=== PATIENT | male | born 1990 | race Caucasian/White ===

== ENCOUNTER 2017-03-01 14:38 | Emergency (ER) | payer BC, MEDICAID ==
[2017-03-01 14:53] VITALS: TEMP 97.8; O2SAT 100
[2017-03-01] MEDS ORDERED: Sodium Chloride 0.9% 1,000 ML IV STA (15:30)
--- NOTE | 2017-03-01 15:50 | ED PDOC ---
HPI: Abdomen <Kiah Barragan - Last Filed: 03/01/17 17:33> <Tulio Stevens III - Last Filed: 03/03/17 12:37> Time Seen by Provider: 03/01/17 15:30 Chief Complaint (Nursing): Abdominal Pain Additional Complaint(s): 26M p/w 2nd day of nausea, but able to tolerate water. He reports it started yesterday after eating rice/beans/chicken he became nauseous and NBNB vomit x1 for "little bit of water". This was associated with subjective fevers and diaphoresis. He has not eaten since this episode but has been able to tolerate water and continue taking his medications for ADD and anxiety and has overall improved. Otherwise, he denies SOB, chest pain, palpitations, sore throat, cough, ear pain, abdominal pain, reflux symptoms, diarrhea, dysuria. PMH: ADHD, Anxiety PSH: None Smoker: Denies Alcohol: Denies Drugs: Denies Meds: Gabapentin, Strattera Allergies: NKDA (Kiah Barragan) Supervising Attending Note - Attestation: I have personally seen and examined this patient.: Yes I have fully participated in the care of the patient.: Yes I have reviewed all pertinent clinical information: Yes <Tulio Stevens III - Last Filed: 03/03/17 12:37> Past Medical History - Medical History PMH: Anxiety, Depression - Family History Family History: States: Unknown Family Hx - Immunization History Hx Influenza Vaccination: Yes <Kiah Barragan - Last Filed: 03/01/17 17:33> <Tulio Stevens III - Last Filed: 03/03/17 12:37> Vital Signs: Last Vital Signs Temp 97.8 F 03/01/17 14:52 Pulse 78 03/01/17 18:22 Resp 16 03/01/17 18:22 BP 135/72 03/01/17 18:22 Pulse Ox 100 03/01/17 18:22 - Home Medications Home Medications: Ambulatory Orders Medication Instructions Recorded Gabapentin 300 mg PO BID 08/14/15 Wellbutrin 150 mg PO DAILY 08/14/15 traZODone 50 mg PO HS 08/14/15 Ondansetron [Zofran] 4 mg PO Q6H PRN #10 tab 03/01/17 - Allergies Allergies/Adverse Reactions: Allergies Allergy/AdvReac Type Severity Reaction Status Date / Time No Known Allergies Allergy Verified 08/14/15 12:31 Review of Systems ROS Statement: Except As Marked, All Systems Reviewed And Found Negative Constitutional: Positive for: Fever (not measured), Sweats Gastrointestinal: Positive for: Nausea (improved), Vomiting (yesterday x1). Negative for: Abdominal Pain, Diarrhea <Kiah Barragan - Last Filed: 03/01/17 17:33> Physical Exam - Reviewed Vital Signs Reviewed: Yes - Physical Exam Appears: Positive for: Well, Non-toxic, No Acute Distress Head Exam: Positive for: ATRAUMATIC, NORMAL INSPECTION Skin: Positive for: Normal Color, Warm, Dry Eye Exam: Positive for: Normal appearance, EOMI, PERRL ENT: Positive for: Pharynx Is (clear), TM Is/Are (clear) Neck: Positive for: Normal, Supple Cardiovascular/Chest: Positive for: Regular Rate, Rhythm Respiratory: Positive for: Normal Breath Sounds. Negative for: Wheezing Gastrointestinal/Abdominal: Positive for: Bowel Sounds, Soft. Negative for: Tenderness <Kiah Barragan - Last Filed: 03/01/17 17:33> - Laboratory Results Result Diagrams: 03/01/17 16:40 03/01/17 16:40 - ECG O2 Sat by Pulse Oximetry: 100 <Kiah Barragan - Last Filed: 03/01/17 17:33> - Laboratory Results Result Diagrams: 03/01/17 16:40 03/01/17 16:40 <Tulio Stevens III - Last Filed: 03/03/17 12:37> Medical Decision Making <Kiah Barragan - Last Filed: 03/01/17 17:33> <Tulio Stevens III - Last Filed: 03/03/17 12:37> Medical Decision Making: Suspect viral gastroenteritis given improvement since yesterday. - CBC: WNL - CMP: WNL - Alcohol: <10 - Lipase: WNL - 1L IV bolus: completed More c/w viral gastroenteritis that is improving, tolerating water and feeling better. (Kiah Barragan) Disposition - Patient ED Disposition Is Patient to be Admitted: No Counseled Patient/Family Regarding: Studies Performed, Diagnosis, Need For Followup, Rx Given - Disposition Disposition: Routine/Home Disposition Time: 17:33 <Kiah Barragan - Last Filed: 03/01/17 17:33> <Tulio Stevens III - Last Filed: 03/03/17 12:37> - Clinical Impression Clinical Impression: Nausea & vomiting, Viral gastroenteritis - Disposition Referrals: Primary, Care Physician [Other] Condition: STABLE Additional Instructions: Return to ER for any worse or new symptoms. Take zofran as needed for nausea Prescriptions: Ondansetron [Zofran] 4 mg PO Q6H PRN #10 tab PRN Reason: Nausea/Vomiting Instructions: Acute Nausea and Vomiting (ED), Acute Abdominal Pain (ED) Forms: [employer] (Citizen Of [place])
[2017-03-01 16:54] LABS: BASO % 0.3 % (0.0-2.0); EOS # 0.1 K/uL (0.0-0.7); EOS % 2.3 % (0.0-4.0); HEMATOCRIT 38.4 % (35.0-51.0); MEAN CELL VOLUME 86.6 fl (80.0-94.0); MEAN CORPUSCULAR HGB CONC 34.6 g/dL (33.0-37.0); MEAN PLATELET VOLUME 8.3 fl (7.2-11.7); MONO # 0.3 K/uL (0.0-0.8); MONO % 6.8 % (0.0-10.0); NEUT # 2.6 K/uL (1.8-7.0); NEUT % 51.6 % (50.0-75.0); NRBC % 0.2 % (0.0-0.0); RED CELL DISTRIBUTION WIDTH 13.4 % (11.5-14.5)
[2017-03-01 17:21] LABS: ALB/GLOB RATIO 1.6 (1.0-2.1); ALCOHOL SERUM < 10 mg/dl (0-10); ALKALINE PHOSPHATASE 57 U/L (38-126); ALT/SGPT 53 U/L (21-72); AST/SGOT 32 U/L (17-59); BILIRUBIN,TOTAL 0.4 mg/dl (0.2-1.3); BLOOD UREA NITROGEN 14 mg/dl (9-20); CALCIUM 9.1 mg/dL (8.4-10.2); CARBON DIOXIDE 26 mmol/L (22-30); CHLORIDE 102 mmol/L (98-107); GFR AFRICAN-AMERICAN > 60; GLUCOSE,RANDOM 79 mg/dL (75-110); LIPASE 48 U/L (23-300); POTASSIUM 4.4 MMOL/L (3.6-5.0); SODIUM 140 mmol/l (132-148); TOTAL PROTEIN 7.4 G/DL (6.3-8.2)
[2017-03-01 18:23] VITALS: BP 135/72; PULSE 78; RESP 16
== END 2017-03-01 18:22 | disposition home or self-care (01) ==
LOC: H.ER 14:38
DX: F41.9 Anxiety disorder, unspecified (principal); F90.9 Attention-deficit hyperactivity disorder, unspecified type; F32.9 Major depressive disorder, single episode, unspecified; A08.4 Viral intestinal infection, unspecified
CPT/HCPCS: 80053; 80320; 83690; 85025; 96360; 99283; J7040